=== PATIENT | female | born 1955 | race Caucasian/White ===

== ENCOUNTER 2024-01-30 16:47 | Emergency (ER) | payer OTHER ==
[~2024-01-30] VITALS: Ht 154.9 cm; Wt 74.0 kg
[2024-01-30] MEDS: GLUCAGON EMERG KIT 1mg/1ml IM ONE (20:05)
[2024-01-30 21:32] VITALS: BP 136/75; PULSE 78; RESP 18; TEMP 98; O2SAT 98
== END 2024-01-30 21:54 | disposition home or self-care (01) ==
LOC: ER 16:47
DX: R09.A2 Foreign body sensation, throat (principal); I10 Essential (primary) hypertension; E78.5 Hyperlipidemia, unspecified; F41.9 Anxiety disorder, unspecified; K21.9 Gastro-esophageal reflux disease without esophagitis
CPT/HCPCS: 70490; 82962; 96372; 99285; J1610